=== PATIENT | male | born 1975 | race African-American/Black ===

== ENCOUNTER 2018-08-07 15:08 | Emergency (ER) | payer BC ==
[2018-08-07] MEDS ORDERED: AMOX/CLAV 875 MG/125 MG TABLET PO STA (15:31)
[2018-08-07] MEDS ORDERED: TETANUS/DIPHTHERIA/PERTUSSIS 0.5 ML SYRINGE IM ONE (15:31)
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
[2018-08-07] MEDS ORDERED: BACITRACIN OINT TOP STA (16:04)
[2018-08-07 16:11] VITALS: BP 154/104
== END 2018-08-07 16:13 | disposition home or self-care (01) ==
LOC: ED 15:08
DX: S61.452A Open bite of left hand, initial encounter (principal); Y04.0XXA Assault by unarmed brawl or fight, initial encounter; R03.0 Elevated blood-pressure reading, without diagnosis of hypertension; F17.200 Nicotine dependence, unspecified, uncomplicated; Z23 Encounter for immunization
CPT/HCPCS: 73130; 90471; 90715; 99283; A9270